=== PATIENT | male | born 1965 ===

== ENCOUNTER 2019-01-09 15:26 | Emergency (ER) | payer OTHER ==
[~2019-01-09] VITALS: Ht 182.9 cm; Wt 108.9 kg
[~2019-01-09 15:26] MED LIST: CEFUROXIME500 MG PO; KETO10TA2 PO
[2019-01-09] MEDS ORDERED: AVAPRO150 MG PO (15:40)
== END 2019-01-09 16:08 | disposition home or self-care (01) ==
LOC: ER 15:26
DX: S90.01XA Contusion of right ankle, initial encounter (principal); W18.39XA Other fall on same level, initial encounter; Y93.89 Activity, other specified; Y92.89 Other specified places as the place of occurrence of the external cause; Y99.8 Other external cause status

== ENCOUNTER 2025-08-09 06:00 | Day surgery (SDC) | payer OTHER ==
[~2025-08-09 06:00] MED LIST changes: +AVAPRO150 MG PO
[2025-08-09] MEDS ORDERED: MIDAZOLAM HCL 2 MG/2 ML VIAL IV ONE (11:45)
[2025-08-09] MEDS ORDERED: fentaNYL CITRATE 50 MCG/ML AMPUL IV PUSH ONE (11:45)
[2025-08-09] MEDS ORDERED: FLUMAZENIL 0.5 MG/5 ML ML IV STA (11:45)
[2025-08-09] MEDS ORDERED: DIPHENHYDRAMINE HCL 50 MG/ML VIAL 1ML IV ONE (11:45)
== END 2025-08-09 13:25 | disposition home or self-care (01) ==
LOC: AMB-ENDOS 06:00
PROVIDERS: ATTEND Colon & Rectal Surgery
DX: K62.4 Stenosis of anus and rectum (principal)